=== PATIENT | male | born 1990 | race Two or more races ===

== ENCOUNTER 2024-05-26 07:00 | Emergency (ER) | payer MEDICAID, SELFPAY ==
[2024-05-26 07:01] VITALS: BMI 35.6
[2024-05-26 07:28] VITALS: TEMP 38.3
[2024-05-26] MEDS: IBUPROFEN TAB 400 MG TABLET 800 MG PO (07:28)
[2024-05-26] MEDS: ONDANSETRON ODT 4 MG TABRAP PO (07:28)
[2024-05-26 07:32] VITALS: BMI 37.6
[2024-05-26 07:33] VITALS: BP 155/83; PULSE 91; RESP 18; TEMP 38.4; O2SAT 95
--- NOTE | 2024-05-26 07:37 | PD.EDADULT ---
ED General RME/HPI General Chief complaint: General Adult/Misc Complain Stated complaint: HEADACHE,VOMITING,SHAKES Time Seen by Provider: 05/26/24 07:37 Arrival date/time: 05/26/24 07:00 34-year-old male with no significant medical problems with positive sick contact at home presents the emergency department today complaints of nausea, vomiting, diarrhea, generalized bodyaches headaches and chills. Limitations: no limitations Related Data Previous Rx's ?Medication ?Instructions ?Recorded dicyclomine 20 mg tablet 20 mg PO QID PRN abdominal pain 02/09/19 #20 tabs ondansetron HCl 4 mg tablet 4 mg PO QID PRN nausea and 02/09/19 (Zofran) vomiting #14 tabs albuterol sulfate 90 mcg/actuation 2 puff inhalation Q4H PRN 08/07/19 aerosol inhaler (Ventolin HFA) shortness of breath #6.7 grams azithromycin 250 mg tablet See Rx Instructions PO .COMPLEX #6 08/07/19 tabs fluticasone propionate 220 1 puff inhalation BID #12 grams 08/07/19 mcg/actuation HFA aerosol inhaler (Flovent HFA) promethazine-DM 6.25 mg-15 mg/5 mL 5 ml PO Q6H #180 mL 08/07/19 oral syrup albuterol sulfate 90 mcg/actuation 1 puff inhalation QID PRN 01/27/22 aerosol inhaler (ProAir HFA) shortness of breath or wheezing #8.5 grams ibuprofen 800 mg tablet 800 mg PO TID PRN pain #30 tabs 01/27/22 prednisone 50 mg tablet 50 mg PO QDAY #5 tabs 01/27/22 ibuprofen 800 mg tablet (IBU) 800 mg PO Q8H #20 tabs 08/22/23 nirmatrelvir 300 mg (150 mg See Rx Instructions PO .COMPLEX 08/22/23 x2)-ritonavir 100 mg tablet,dose #30 tabs pack (Paxlovid) acetaminophen 500 mg capsule 1,000 mg (2 x 500 mg) PO Q8HR PRN 05/26/24 pain #30 caps ibuprofen 800 mg tablet 800 mg PO TID PRN pain #30 tabs 05/26/24 loperamide 2 mg capsule (Imodium 2 mg PO Q6H PRN loose stool #14 05/26/24 A-D) caps ondansetron 4 mg disintegrating 4 mg PO Q6H PRN nausea and 05/26/24 tablet vomiting #14 tabs Allergies Allergy/AdvReac Type Severity Reaction Status Date / Time Penicillins Allergy Severe THROAT Verified 05/26/24 07:04 VICENTE Review of Systems Review of Systems Systems Reviewed: All systems reviewed, normal except as documented Constitutional Constitutional: Reports system reviewed and no additional complaints, except as documented, Reports body ache(s), Reports fever(s) and Reports headache(s) Eyes Eyes: Reports system reviewed and no additional complaints, except as documented and Denies blurry vision ENT Ears, Nose, Mouth, and Throat: Reports system reviewed and no additional complaints, except as documented, Reports headache(s), Reports nasal congestion and Reports nasal discharge Cardiovascular Cardiovascular: Reports system reviewed and no additional complaints, except as documented, Denies chest pain and Denies dyspnea Respiratory Respiratory: Reports system reviewed and no additional complaints, except as documented, Denies chest congestion, Denies cough and Denies dyspnea Gastrointestinal Gastrointestinal: Reports system reviewed and no additional complaints, except as documented, Denies abdominal pain, Reports loose stools and Reports vomiting Integumentary/Breasts Skin/Breast: Reports system reviewed and no additional complaints, except as documented and Denies rash Neurologic Neurologic: Reports system reviewed and no additional complaints, except as documented, Reports as per HPI and Reports headache(s) Past Medical History Past Medical History CARDIAC: Negative Congestive Heart Failure RESPIRATORY: Negative Chronic Obstructive Pulmonary Disease (COPD) GASTROINTESTINAL: Positive Gastrointestinal Disorders (per patient has a hernia) GENITOURINARY: Negative Renal Disease MUSCULOSKELETAL: Positive Musculoskeletal Disorders (carpel tunnel bilateral wrist) and Arthritis ENDOCRINE: Negative Diabetes Mellitus Type 1 or Diabetes Mellitus Type 2 Social History SMOKING STATUS: Former smoker ED Exam General Limitations: Present no limitations General appearance: Present alert and in no apparent distress Head Head exam: Present atraumatic Eye Eye exam: Present normal appearance, PERRL and EOMI; Absent conjunctival injection ENT ENT exam: Present normal exam, normal oropharynx and mucous membranes moist Neck Neck exam: Present normal inspection, full ROM and trachea midline; Absent tenderness or meningismus Chest Chest inspection: Present normal inspection and symmetric chest wall rise Respiratory Respiratory exam: Present normal lung sounds bilaterally; Absent respiratory distress Cardiovascular Cardiovascular exam: Present regular rate, normal rhythm and normal heart sounds Abdominal Exam Abdominal exam: Present soft and normal bowel sounds; Absent distention, tenderness, guarding, rebound, rigidity, Cantu's sign or tenderness at McBurney's Point Abdominal tenderness: Absent RUQ Extremities Exam Extremities exam: Present normal inspection and full ROM Back Exam Back exam: Present normal inspection and full ROM Neurological Exam Neurological exam: Present alert, oriented X3 and CN II-XII intact Psychiatric Psychiatric exam: Present normal affect and normal mood Skin Skin exam: Present warm, dry, intact and normal color Course Quality Measures none Orders Category Date Time Status Ibuprofen Tab [Motrin Tab] Med 05/26/24 07:21 Discontinued 800 mg PO X1 ONE Ondansetron Odt [Zofran Odt] Med 05/26/24 07:22 Discontinued 4 mg PO X1 ONE Vital Signs Vital signs: Vital Signs Temperature 101 F H 05/26/24 07:28 O2 saturation 96% room air with normal limits [facility] Patient data External records reviewed:: [facility] previous records Clinical information provided by:: patient Social determinants that could affect healthcare access:: none Patient has the following chronic illnesses:: None How is presenting disease/condition affected by chronic disease/condition?: no chronic disease Evaluation data The following diagnostics were reviewed and interpreted by me:: lab results Lab and/or radiology exams considered but not ordered:: Flu obtained Interpretation Summary: Flu came back negative Medications Medications considered but not ordered:: Given Medication administrations:: Medication Administration History Discontinued Medications Ibuprofen (Ibuprofen Tab 400 Mg Tablet) 800 mg PO X1 ONE Stop: 05/26/24 07:22 Last Admin: 05/26/24 07:28 Dose: 800 mg Documented By: SHAE Ondansetron HCl (Ondansetron Odt 4 Mg Tabrap) 4 mg PO X1 ONE; Protocol Stop: 05/26/24 07:23 Last Admin: 05/26/24 07:28 Dose: 4 mg Documented By: TM Given Consultations Consultation(s) initiated? (list below): No Diagnosis Differential Diagnosis ED Complaint MDM: URI, viral illness, influenza, COVID-19 Most likely diagnosis given after review of the tests above:: Viral illness Admission Indicated Admission indicated?: not indicated Explain why admission is indicated or not indicated:: No criteria Admission Request Was there a request for admission?: No Disposition Plan Disposition Plan: Discharge Discharge Attestation Discharge Attestation: The patient and all family members were given an opportunity to ask questions and understood the discharge instructions. Discharge instructions specifically effects, indications for sooner follow up or return to the emergency department, and the expected course of current diagnosis. Patient condition: Stable Medical Decision Making MDM Narrative MDM Narrative: 34-year-old male with no significant medical problems with positive sick contact at home presents the emergency department today complaints of nausea, vomiting, diarrhea, generalized bodyaches headaches and chills. On exam patient well-appearing despite having a fever patient does not appear ill or toxic Patient is not tachycardic patient reports no shortness of breath or abdominal pain no neck pain or difficulty moving neck. Symptoms are highly consistent with gastroenteritis/viral illness Patient checked for flu which came back negative Patient given Zofran as well as ibuprofen here I discussed the possibly doing lab work and further evaluation for the possibility of trying outpatient medication first patient reports he did rather try outpatient medication to see if he gets better with that and if he gets worse he understands he should return to the ER for further evaluation and further treatment Patient discharged home in no distress to follow-up with primary care doctor in the next 24 to 48 hours and for any worsening symptoms to return to the ER immediately Differential Diagnosis Differential Diagnosis: URI, viral illness, influenza, COVID-19 Medical Records Medical records reviewed: Yes I reviewed the patient's medical records. Lab Data Lab results reviewed: Yes I reviewed the patient's lab results. Discharge Plan Plan Patient Disposition: HOME (Self Care) Disposition Comment: Stable Prescriptions/Referrals Prescriptions/Med Rec: New acetaminophen 500 mg capsule 1,000 mg PO Q8HR PRN (Reason: pain) Qty: 30 0RF loperamide [Imodium A-D] 2 mg capsule 2 mg PO Q6H PRN (Reason: loose stool) Qty: 14 0RF ibuprofen 800 mg tablet 800 mg PO TID PRN (Reason: pain) Qty: 30 0RF ondansetron 4 mg tablet,disintegrating 4 mg PO Q6H PRN (Reason: nausea and vomiting) Qty: 14 0RF No Action azithromycin 250 mg tablet See Rx Instructions PO .COMPLEX Qty: 6 0RF Dose Instruction: take 500 mg today (day 1), then 250 mg for 4 days (days 2-5) PO Rx Instructions: take 500 mg today (day 1), then 250 mg for 4 days (days 2-5) PO Flovent HFA 220 mcg/actuation HFA aerosol inhaler 1 puff INH BID Qty: 12 0RF albuterol sulfate [Ventolin HFA] 90 mcg/actuation HFA aerosol inhaler 2 puff INH Q4H PRN (Reason: shortness of breath) Qty: 6.7 0RF promethazine-DM 6.25-15 mg/5 mL syrup 5 ml PO Q6H Qty: 180 0RF ondansetron HCl [Zofran] 4 mg tablet 4 mg PO QID PRN (Reason: nausea and vomiting) Qty: 14 0RF dicyclomine 20 mg tablet 20 mg PO QID PRN (Reason: abdominal pain) Qty: 20 0RF prednisone 50 mg tablet 50 mg PO QDAY Qty: 5 0RF albuterol sulfate [ProAir HFA] 90 mcg/actuation HFA aerosol inhaler 1 puff inhalation QID PRN (Reason: shortness of breath or wheezing) Qty: 8.5 0RF ibuprofen 800 mg tablet 800 mg PO TID PRN (Reason: pain) Qty: 30 0RF Paxlovid 300 mg (150 mg x 2)-100 mg tablets,dose pack See Rx Instructions .ROUTE .COMPLEX Qty: 30 0RF Rx Instructions: take TWO 150 mg tablets of nirmatrelvir with ONE 100 mg tablet of ritonavir twice daily for 5 days ibuprofen [IBU] 800 mg tablet 800 mg PO Q8H Qty: 20 0RF Problem List Clinical Impression: Viral infection Patient/Caregiver Discharge Instructions Education Materials: ED Viral Syndrome (Adult) Additional Instructions: Please follow up with your primary care doctor in the next 24-48hrs for any worsening symptoms return here immediately Print Language: Frisian Stand Alone Forms: Carolee Award Info., Work/School Release, Patient Portal Info Letter PA/[facility] Supervising Physician PA/[facility] Supervising Physician: Dr Almanza
== END 2024-05-26 07:51 | disposition home or self-care (01) ==
LOC: SERX 07:44
PROVIDERS: Emergency Provider Emergency Medicine; PCP Family Medicine
DX: B34.9 Viral infection, unspecified (principal)
CPT/HCPCS: 87400; 99282; Q0162; A9270

== ENCOUNTER → 2024-05-29 | Outpatient (CLI) | payer MEDICAID, SELFPAY ==
--- NOTE | 2024-05-29 10:31 | XR_ITS ---
Examination: PA lateral chest 2 views TECHNIQUE: Upright PA lateral chest 2 views Exam date and time: May 29, 2024 1059 hours Comparison April 17, 2018 INDICATIONS: Fever chills coughing one week FINDINGS: Normal heart size No pneumonia or pulmonary edema Mild osteopenia IMPRESSION: No pneumonia identified
== END | disposition home or self-care (01) ==
PROVIDERS: Referring Provider Physician Assistant Medical; Visit Provider Physician Assistant Medical
DX: B34.9 Viral infection, unspecified (principal)
CPT/HCPCS: 71046